=== PATIENT | female | born 1995 | race Caucasian/White ===

== ENCOUNTER 2021-05-04 05:00 | Inpatient (IN) | payer OTHER ==
[~2021-05-04] VITALS: Ht 157.5 cm; Wt 66.2 kg
[2021-05-04 08:36] LABS: HEMOGLOBIN 9.2 gm/dl (12.3-15.3); RED BLOOD COUNT 3.51 M/UL (4.00-5.10); WHITE BLOOD COUNT 9.8 K/UL (4.5-11.0)
[2021-05-04] MEDS ORDERED: TRANDATE 100 M100 MG PO (09:05)
[2021-05-04] MEDS ORDERED: FERROUS SULFAT325 MG PO (12:36)
[2021-05-04] MEDS ORDERED: IBUPROFEN600 MG PO (12:36)
[2021-05-04] MEDS ORDERED: COLACE 100MG C100 MG PO (12:36)
[2021-05-05 06:35] LABS: HEMOGLOBIN 9.1 gm/dl (12.3-15.3)
[2021-05-06] MEDS ORDERED: HYDROCODON-ACE1 EAC4 PO (13:00)
== END 2021-05-06 18:08 | disposition home or self-care (01) | DRG 807 ==
LOC: GENOP 05:00 → OB 08:31
PROVIDERS: ADMIT Obstetrics & Gynecology
PROC: 10E0XZZ Delivery of Products of Conception, External Approach (ICD-10-PCS; principal; 2021-05-04)
PROC: 10907ZC Drainage of Amniotic Fluid, Therapeutic from Products of Conception, Via Natural or Artificial Opening (ICD-10-PCS; 2021-05-04)
PROC: 3E033VJ Introduction of Other Hormone into Peripheral Vein, Percutaneous Approach (ICD-10-PCS; 2021-05-04)
PROC: 10H07YZ Insertion of Other Device into Products of Conception, Via Natural or Artificial Opening (ICD-10-PCS; 2021-05-04)
PROC: 3E0R3NZ Introduction of Analgesics, Hypnotics, Sedatives into Spinal Canal, Percutaneous Approach (ICD-10-PCS; 2021-05-04)
DX: O13.4 Gestational [pregnancy-induced] hypertension without significant proteinuria, complicating childbirth (principal); Z37.0 Single live birth; O99.013 Anemia complicating pregnancy, third trimester; D64.9 Anemia, unspecified; Z3A.37 37 weeks gestation of pregnancy; O69.81X0 Labor and delivery complicated by cord around neck, without compression, not applicable or unspecified
CPT/HCPCS: 36415; 85014; 85018; 85025; 85461; 86850; 86900; 86901; 90471; 90715; J0360; J2590; J2790; J7120